=== PATIENT | male | born 1945 | race Caucasian/White ===

== ENCOUNTER 2021-02-11 19:34 | Emergency (ER) | payer MEDICARE, OTHER ==
[2021-02-11 20:33] LABS: HEMOGLOBIN 14.2 gm/dl (14.0-17.5); RED BLOOD COUNT 4.49 M/UL (4.20-5.50); WHITE BLOOD COUNT 6.9 K/UL (4.5-11.0)
== END 2021-02-12 06:02 | disposition home or self-care (01) ==
LOC: ER1 19:34
PROVIDERS: Physician Assistant Medical; Student in an Organized Health Care Education/Training Program
DX: R41.0 Disorientation, unspecified (principal); E86.0 Dehydration; F17.220 Nicotine dependence, chewing tobacco, uncomplicated; E78.5 Hyperlipidemia, unspecified; J44.9 Chronic obstructive pulmonary disease, unspecified; Z20.822 Contact with and (suspected) exposure to COVID-19
CPT/HCPCS: 70450; 71045; 80053; 81001; 82140; 82550; 82553; 83605; 83690; 83874; 84439; 84443; 84484; 85025; 87040; 87086; 93005; 99285; Q9967; U0002